=== PATIENT | female | born 1975 | race Caucasian/White ===

== ENCOUNTER → 2017-10-25 14:09 | Outpatient (CLI) | payer OTHER, SELFPAY ==
[2017-10-28 13:38] LABS: HPV Reflexed? NOT INDICATED
== END ==
PROVIDERS: Visit Provider Obstetrics & Gynecology
DX: Z12.4 Encounter for screening for malignant neoplasm of cervix (principal)
CPT/HCPCS: 88175; G0145

== ENCOUNTER → 2018-01-08 08:59 | Outpatient (CLI) | payer OTHER, SELFPAY ==
[2018-01-08 10:45] LABS: Hemoglobin A1c 5.5 % (4.2-6.3)
[2018-01-08 10:48] LABS: Progesterone Level 0.34 ng/mL (See Comment)
[2018-01-08 10:51] LABS: Estradiol 71.1 pg/mL; Free T3 2.7 pg/mL (2.18-3.98); T4 Free Direct 0.94 ng/dL (0.76-1.46); Thyroid Stim Hormone (TSH) 1.68 uIU/mL (0.358-3.74)
[2018-01-11 20:07] LABS: DHEA Sulfate 144.8 ug/dL (57.3-279.2); Testosterone, % Free 2.02 % (0.50-2.80); Testosterone, Free 0.73 ng/dL (0.10-0.85); Testosterone, Total 36 ng/dL (8-48)
[2018-01-12 09:52] LABS: Sex Hormone-binding Globulin 53.3 nmol/L (24.6-122.0)
== END ==
PROVIDERS: Visit Provider Obstetrics & Gynecology
DX: N92.0 Excessive and frequent menstruation with regular cycle (principal)
CPT/HCPCS: 36415; 82533; 82627; 82670; 83036; 84144; 84270; 84402; 84403; 84439; 84443; 84481; 82626

== ENCOUNTER → 2019-01-03 13:26 | Outpatient (CLI) | payer OTHER, SELFPAY ==
[2019-01-08 17:22] LABS: HPV Reflexed? NOT INDICATED
== END ==
PROVIDERS: Visit Provider Obstetrics & Gynecology
DX: Z12.4 Encounter for screening for malignant neoplasm of cervix (principal)
CPT/HCPCS: 88175; G0145

== ENCOUNTER → 2021-08-21 11:23 | Outpatient (CLI) | payer OTHER, SELFPAY | PROVIDERS: PCP Internal Medicine; Referring Provider Obstetrics & Gynecology; Visit Provider Obstetrics & Gynecology | DX: Z00.00 Encounter for general adult medical examination without abnormal findings (principal) ==

== ENCOUNTER 2021-08-26 07:15 | Day surgery (SDC) | payer OTHER, SELFPAY ==
[2021-08-21 11:41] LABS: Hematocrit 40.8 % (37-47); Hemoglobin 13.2 g/dL (12.0-15.0); Mean Corp Hgb Conc 32.4 g/dL (32-36); Mean Corpuscular Hgb 27.4 pg (27.0-32.0); Mean Corpuscular Volume 84.8 fL (81-99); Mean Platelet Vol. 10.2 fl (6.2-12.0); Platelet Count 317 K/mm3 (150-450); RBC Distribution Width CV 14.2 % (11.6-14.6); RBC Distribution Width SD 43.7 fl (35.1-43.9); Red Blood Count 4.81 M/mm3 (4.2-5.4); White Blood Count 7.1 K/mm3 (4.4-11.0)
[2021-08-26] VITALS (8 sets, daily range): BP systolic 105–159; BP diastolic 66–106; PULSE 55–74; RESP 16–21; TEMP 36.2–37.2; O2SAT 95–100; BMI 41.4
--- NOTE | 2021-08-26 | EMB_PTH ---
PATIENT: ROXANNE CAIN [place] [facility] [place][id number] AGE/SX: 46/F ROOM: RE08/26/[address]: Dr. Rosemary Rizo DO : 1975 BED: DIS: 08/26/2021 SPEC #: [id number] RECD: 08/26/21 12:57 STATUS: MOY RERajinder #: [id number] MARTI: 08/26/21 00:[address]: Rosemary Rizo DEPT: SURGICAL PATHOLOGY RECD BY: Davon Mercado ENTERED: 08/26/21 12:57 SP TYPE: ENDOM BX/C JAMIL DR: Dr. Yessi Maher MD Tissues: Endometrium, NOS Procedures: Surgery Specimen Level IV HEADER OPERATION: Hysteroscopy, dilation and curettage, Symphion, Mirena IUD PRE-OP DIAGNOSIS: Menorrhagia TISSUE SUBMITTED: Endometrial curettings MICROSCOPIC DIAGNOSIS Endometrial curettings: Proliferative endometrium. Fragments of benign ecto- and endocervical mucosa. LIN:latrell 08/27/2021 MICROSCOPIC DESCRIPTION Slides are reviewed. GROSS DESCRIPTION Received in fixative is one container labeled with the patient's name and designated endometrial curettings. The specimen consists of multiple fragments of hemorrhagic soft tissue that in aggregate measure 5 x 3 x 0.2 cm. The entire specimen is submitted in two cassettes. / LIN:latrell 08/26/2021 TC:4 CPT: 83854
[2021-08-26 07:50] LABS: Internal QC Validated? YES +Cl - CLEAR BKGD; Pregnancy, Urine Negative Negative
[2021-08-26] MEDS: Lactated Ringers 1,000 ML 15 ML IV (08:07)
[2021-08-26] MEDS: Lidocaine 1% (20 ml mdv) 20 ML Vial (08:55)
--- NOTE | 2021-08-26 09:15 | PCM.OPRPT ---
Problems Associated Problem List Diagnoses (1) Menorrhagia: (2) DUB (dysfunctional uterine bleeding): Report of Operation Date of Procedure: 08/26/21 Pre-Operative Diagnosis: Menorrhagia, DUB, uterine polyp and adenomyosis on pelvic ultrasound Post-Operative Diagnosis: Menorrhagia, DUB Surgery/Procedure Performed:: Hysteroscopy, D&C, Mirena IUD placement Description of Surgical Findings:: Normal appearing uterine cavity. No polyps or fibroids noted. Uterus sounded to 8 cm. Uterus is anteverted. Bilateral tubal ostia visualized. Surgeon: Rosemary Rizo Type of Anesthesia: MAC Special Medications: None Specimen's removed: Endometrial curettings Drains: None Estimated Blood Loss (mL): < 50 cc Fluids Replaced: 1000 mL Description of Procedure: Patient was taken to the operating room where MAC anesthesia was found to be adequate. She was prepped and draped in the dorsal lithotomy position using yellowfin stirrups. The uterus was felt to be anteverted, and minimal descent was noted. A weighted speculum was placed in the vagina to expose the cervix. A single-tooth tenaculum was placed on the anterior lip of the cervix. The cervix was serially dilated to accommodate the Symphion hysteroscope. The Symphion hysteroscope was advanced to the fundus of the uterus and distended using normal saline as distention media. Bilateral tubal ostia were visualized. Uterine cavity was normal-appearing. No polyps or fibroids were noted. The hysteroscope was then removed. A sharp curettage was performed for a moderate amount of tissue. Endometrial cuttings were sent to pathology for review. Uterus sounded 8 cm. The Mirena IUD device was set to 8 cm in length, and then placed in the uterine cavity in usual sterile fashion. The IUD strings were trimmed to 2 cm in length. Bleeding was hemostatic. All instruments removed from the vagina. The vaginal sweep was performed. Instrument and sponge counts were correct. The patient was taken recovery in stable condition. Grafts/Implants Used: None Procedure Start Time: 08:55 Procedure Stop Time: 09:12 Complications None Admit VTE Documentation VTE Present on Admission: No VTE Mechan Device Prophylaxis: SCD's
--- NOTE | 2021-08-26 09:29 | PCM.DC ---
Discharge Instructions Diet Discharge Diet: No restrictions Activity Discharge Activity: Return to Normal Activity and [place] [address] (More than 24 hours after anesthesia) May resume sexual activity in: 1-2 weeks Ice area for (Minutes): 15 Weight Bearing Status: Weight bearing as tolerated Lifting Restrictions: No restrictions Additional Activity Instructions:: No tampons, intercourse, hot tubs, tub baths, or swimming pools for 1 week Dressing / Incision Call your doctor if you observe: Fever of 101 or Higher, Coldness, Increased Pain, Numbness or Tingling, Inability to urinate, Inability to have a bowel movement, Using more than 1 pad per hour, Shortness of breath, Dizziness, Fainting spells, Swelling in the ankles, Chest pain, Increased palpitations (irregular heartbeat), Calf discomfort and Uncontrolled pain Follow Up Care Please Follow Up With: Rosemary Rizo DO When: 1-2 weeks Test Results: Test results from this visit will be discussed in further detail at your follow-up appointment, if applicable. Discharge Plan Admission Primary Reason for Your Visit: surgery Attending Provider: Rosemary Rizo Primary Care Provider: Yessi Maher Discharge Orders/Prescriptions Prescriptions: New ibuprofen 600 mg tablet 600 mg PO Q6H PRN (Reason: pain) Qty: 30 RF: 0 Continued lisinopril 10 mg tablet 10 mg PO DAILY RF: 0 Referrals / Follow Up: Yessi Maher MD [Primary Care Provider] - Disposition Disposition (needs filled in before D/C Order can be placed): Home, Self Care
--- NOTE | 2021-08-26 12:24 | SUR.PHASEII ---
PATIENT BECAME NAUSEOUS WHEN GETTING DRESSED TO GO HOME. THIS NURSE CONSULTED ANESTHESIA AND PROVIDED PATIENT WITH SCOP PATCH, SL ZOFRAN AND QUEAS-EASE.PATIENT REPORTS SOME IMPROVEMENT, COMES AND GOES. CLEARED FOR DISCHARGE.
== END 2021-08-26 23:59 | disposition home or self-care (01) ==
LOC: SDC 07:16 → AC 07:18
PROVIDERS: PCP Internal Medicine; Referring Provider Obstetrics & Gynecology; Visit Provider Obstetrics & Gynecology
PROC: 0UB98ZZ Excision of Uterus, Via Natural or Artificial Opening Endoscopic (ICD-10-PCS; CPT 58558; principal; 2021-08-26 08:35)
DX: N92.0 Excessive and frequent menstruation with regular cycle (principal); N93.8 Other specified abnormal uterine and vaginal bleeding; I10 Essential (primary) hypertension; N85.4 Malposition of uterus; Z79.899 Other long term (current) drug therapy; Z30.430 Encounter for insertion of intrauterine contraceptive device
CPT/HCPCS: 58558; 58300; 36415; 81025; 85027; 86850; 86900; 86901; 88305; J7120; J2405